=== PATIENT | female | born 1935 | race Caucasian/White ===

== ENCOUNTER 2017-09-30 23:27 | Emergency (ER) | payer OTHER ==
[~2017-09-30] VITALS: Ht 162.6 cm; Wt 72.6 kg
[2017-09-30] MEDS ORDERED: cloNIDine HCL 0.1 MG TAB PO ONE (23:45)
[2017-10-01 00:29] LABS: Basophils # (auto) 0.1 uL; Basophils % (auto) 0.5 % (0.0-2.0); Eosinophils # (auto) 0.5 uL; Eosinophils % (auto) 4.9 % (0.0-7.0); Hematocrit 39.1 % (36.0-46.0); Hemoglobin 13.2 g/dL (12.2-16.2); Lymphocytes # (auto) 1.6 uL; Lymphocytes % (auto) 15.5 % (10.0-50.0); Mean Corpuscular Hemoglobin 28.2 pg (28.0-32.0); Mean Corpuscular Hgb Conc. 33.7 g/dL (32.0-36.0); Mean Corpuscular Volume 83.6 fL (80.0-100.0); Monocytes # (auto) 0.7 uL; Monocytes % (auto) 7.2 % (0.0-12.0); Neutrophils # (auto) 7.4 uL; Neutrophils % (auto) 71.9 % (37.0-80.0); Platelet Count (auto) 280 10^3/uL (140-450); Red Blood Cells 4.67 10^6/uL (4.0-5.20); Red Cell Distribution Width 15.5 % (11.8-14.3); White Blood Cell 10.3 10^3/uL (4.4-10.8)
[2017-10-01 00:39] LABS: Alanine Aminotransferase 21 U/L (13-56); Albumin 3.1 g/dL (3.4-5.0); Anion Gap 11 (5-15); Aspartate Aminotransferase 15 U/L (15-37); BUN/Creatinine Ratio 17.4; Blood Urea Nitrogen 15 mg/dL (7-18); Calcium 8.1 mg/dL (8.5-10.1); Carbon Dioxide 25 mmol/L (21-32); Chloride 101 mmol/L (98-107); GFR African American 81 mL/min; GFR Non-African American 67 mL/min; Glucose 169 mg/dL (74-106); Potassium 3.5 mmol/L (3.5-5.1); Sodium 137 mmol/L (136-145)
[2017-10-01 00:42] LABS: Partial Thromboplastin Time 27.1 sec (22.64-33.71); Prothrombin Time 10.9 sec (9.37-12.3)
[2017-10-01 00:44] LABS: Alkaline Phosphatase 82 U/L (45-117); Bilirubin, Total 0.2 mg/dL (0.2-1.0); Total Protein 6.7 g/dL (6.4-8.2)
[2017-10-01 10:45] VITALS: BP 149/86
== END 2017-10-01 11:47 | disposition home or self-care (01) ==
LOC: EDBD 23:27 → ER 23:32
DX: I10 Essential (primary) hypertension (principal); J44.9 Chronic obstructive pulmonary disease, unspecified; Z86.73 Personal history of transient ischemic attack (TIA), and cerebral infarction without residual deficits
CPT/HCPCS: 36415; 70450; 80053; 84484; 85025; 85610; 85730; 93005